=== PATIENT | female | born 1970 | race Caucasian/White ===

== ENCOUNTER → 2021-09-17 | Outpatient (CLI) | payer OTHER, SELFPAY ==
--- NOTE | 2021-09-17 06:29 | EKG12_ITS ---
Test Reason : PREOP Blood Pressure : / mmHG Vent. Rate : 092 BPM Atrial Rate : 092 BPM P-R Int : 174 ms QRS Dur : 086 ms QT Int : 340 ms P-R-T Axes : 068 083 039 degrees QTc Int : 420 ms Normal sinus rhythm Normal ECG Confirmed by NURIA ANDERSON, THEA ([id number]), website/blog editor RENITA CINTRON ([id number]) on 09/17/2021 10:25:41 AM Referred By: Rogelio Land Confirmed By:THEA QUIÑONES MD
== END | disposition home or self-care (01) ==
LOC: PSN 06:27
PROVIDERS: PCP Family Medicine; Referring Provider Urology; Visit Provider Urology
DX: Z01.810 Encounter for preprocedural cardiovascular examination (principal)
CPT/HCPCS: 93005